=== PATIENT | female | born 1970 | race Caucasian/White ===

== ENCOUNTER 2017-03-19 13:57 | Emergency (ER) | payer OTHER | END 2017-03-19 18:39 | disposition home or self-care (01) | LOC: ER 13:57 | DX: R42 Dizziness and giddiness (principal); R30.0 Dysuria; R11.0 Nausea; Z90.710 Acquired absence of both cervix and uterus; Z88.8 Allergy status to other drugs, medicaments and biological substances; Z79.899 Other long term (current) drug therapy; Z79.82 Long term (current) use of aspirin | CPT/HCPCS: 99282 ==